=== PATIENT | female | born 1965 | race Caucasian/White ===

== ENCOUNTER 2018-11-17 07:34 | Observation (INO) | payer BC ==
[~2018-11-17] VITALS: Ht 165.1 cm; Wt 93.0 kg
[2018-11-17] MEDS ORDERED: PRILOSEC OTC20 MG PO (07:50)
--- NOTE | 2018-11-17 10:45 | NUR ---
11/17/18 Len5 Chasidy Culver 1031- PT ARRIVEST TO PACU ALERT AND ORIENTED. RESP EVEN AND UNLABORED. OXYGEN SAT HIGH 90'S ON RA. PT REPORTS NO PAIN OR NAUSEA. 1042- DR. POLLARD AT THE BEDSIDE TO TALK WITH THE PT.
--- NOTE | 2018-11-17 12:00 | NUR ---
1155, Pt to room 123. Report received from Adilia CUADRA. Pt denies pain. Left foot elevated, boot in place, ice in place, scd on the right. Pt unable to feel and move her feet at this time. Spinal level at her knees at this time.
--- NOTE | 2018-11-17 13:38 | EKG ---
[facility] [address] [facility] [place], [place] [address] Signed Normal sinus rhythm Possible Left atrial enlargement Incomplete right bundle branch block Borderline ECG No previous ECGs available Confirmed by PILY ALMODOVAR DO ([id number]) on 11/17/2018 1:38:42 PM Electronically Signed By: IPLY ALMODOVAR DO 11/17/18 1338 PATIENT NAME: FIONA BOND Electrocardiogram DATE OF : 65 PHYSICIAN: PILY ALMODOVAR DO REPORT #: [id number] REPORT IS CONFIDENTIAL AND NOT TO BE RELEASED WITHOUT AUTHORIZATION
--- NOTE | 2018-11-17 13:57 | NUR ---
Pt continues to denie any current pain. Circulation and cap refill less than 2 seconds on the left foot toes. Dressing intact, foot elevated with ice in place, boot remains on.
--- NOTE | 2018-11-17 15:05 | NUR ---
SPINAL/BLOCK STILL WORKING ON THE LEFT ANKLE THE PT IS ABLE TO MOVE AND FEEL WITH THE RIGHT NOT THE LEFT YET. PT DENIES ANY PAIN.
--- NOTE | 2018-11-17 15:14 | NUR ---
Pt's ice in her bag replaced at this time. Pt states she needs to void and was placed on the bedpan.
--- NOTE | 2018-11-17 16:59 | NUR ---
Pt continues to denie any pain and her left foot remains numb. Cap refill is less than 2 seconds. Left foot remains elevated with ice in place, boot and dressing cdi. SCD on and running on the right foot. Pt continues to denie any other problems and she is ordering her dinner at this time.
--- NOTE | 2018-11-17 17:39 | NUR ---
PT ADMITTED TODAY POST-OP FOR AN OPEN LEFT ANKLE FX. HER DRESSING AND POST-OP BOOT REMAIN INPLACE, SHE HAS A GOOD CAP REFILL WITH LESS THAN 2 SECONDS. SHE HAD A SPINAL AND A POST-OP BLOCK AND HER LEFT FOOT REAMINS NUMB AT THIS TIME AND SHE IS PAIN FREE. LEFT FOOT ELEVATED AND ICE IN PLACE.
--- NOTE | 2018-11-17 18:50 | NUR ---
Pt up to the commode with 2 person assist and toe touch on the left side. Pt tolerated well and is now back to bed. She was able to void a good amount. Pt ate dinner well and at 100%. Pt continues to denie any pain.
--- NOTE | 2018-11-17 19:26 | NUR ---
RECEIVED REPORT FROM VENECIA VOSS. pt ALERT AND AWAKE DENIES PAIN AT THIS TIME. AT BEDSIDE. CALL LIGHT WITHIN REACH. WHITEBOARD UPDATED. NO REQUESTS AT THIS TIME.
--- NOTE | 2018-11-17 20:07 | NUR ---
ASSESSMENT AND MEDICATIONS DUE. ASSESSMENT DONE. pt DENIES PAIN AT THIS TIME. BLOCK IN PLACE ON LLE. PULSE STRONG, GOOD CAP REFILL. BOOT IN PLACE. DRESSING CDI. MEDICATIONS GIVEN (SEE MAR). EDUCATED ON PAIN MANAGEMENT. WILL CALL WHEN READY TO USE BSC. NO REQUESTS AT THIS TIME. CALL LIGHT WITHIN REACH.
--- NOTE | 2018-11-17 22:06 | NUR ---
VITALS AND I&OS DONE AND CHARTED. BEDSIDE TABLE AND CALL LIGHT IN REACH. PT NEEDS NOTHING MORE AT THIS TIME.
--- NOTE | 2018-11-18 00:02 | NUR ---
ROUNDED ON pt. RESTING WITH EYES CLOSED, RESPIRATIONS REGULAR. AT BEDSIDE. CALL LIGHT WITHIN REACH.
--- NOTE | 2018-11-18 01:22 | NUR ---
ASSESSMENT AND MEDICATION DUE. ASSESSMENT DONE. DRESSING CDI, BOOT IN PLACE. ELEVATED. REFRESHED ICE. SCD ON RIGHT LEG. 2 PA TO BSC AND BACK TO BED. VSS, I&O RECORDED. MEDICATION GIVEN (SEE MAR). CALL LIGHT WITHIN REACH. AT BEDSIDE. NO REQUESTS AT THIS TIME.
--- NOTE | 2018-11-18 04:39 | NUR ---
TO NURSES STATION REQUESTING COFFEE. COFFEE PROVIDED BY CHERI MCMAHON. pt AWAKE AND ALERT. CALL LIGHT WITHIN REACH.
--- NOTE | 2018-11-18 04:50 | NUR ---
pt RESTED MOST OF SHIFT. DRESSING CDI. BOOT IN PLACE. LEG ELEVATED WITH ICE. BLOCK TO LLE. SCD ON RIGHT LEG. DENIED PAIN DURING SHIFT. 2PA TO BSC. TOE TOUGH WT BEARING STATUS ON LEFT LEG. SL, IV ABX. TOLERATING REGULAR DIET. AT BEDSIDE. USES CALL LIGHT APPROPRIATELY.
--- NOTE | 2018-11-18 06:41 | NUR ---
WITH THE HELP OF CHERI MCMAHON WE HELPED PT TO THE BSC AND BACK TO BED. BEDSIDE TABLE AND CALL LIGHT IN REACH. FRESH ICE WATER AND COFFEE GIVEN.
--- NOTE | 2018-11-18 07:14 | NUR ---
BEDSIDE REPORT RECEIVED FROM VENECIA HERNANDEZ. PT REPORTS SOME INCREASING PAIN TO LEFT ANKLE. CMS INTACT DISTAL TO LLE. PT ALSO REQUESTS WARM BLANKETS FOR HER SLEEPING AT BEDSIDE. PT DENIES FURTHER NEEDS/CONCERNS.
--- NOTE | 2018-11-18 07:23 | NUR ---
PATIENT SITTING UP IN BED. IN ROOM. PATIENT'S BREAKFAST ORDERED. CALL LIGHT WITHIN REACH. NO OTHER NEEDS AT THIS TIME
--- NOTE | 2018-11-18 07:44 | NUR ---
Pt resting supine in bed watching tv a/o x4. Pt reports pain is increasing to left ankle. PRN po opiod administered along with iv toradol -see EMAR. Warm blankets provided to pt's per pt request. Call light and h20 in reach. Pt reports usually taking prilosec in the mornings and feels she may have some indegestion after breakfast. Will Consult with MD this morning about potential RX for prilosec per pt request. No further needs/concerns voiced.
--- NOTE | 2018-11-18 09:30 | NUR ---
PT SITTING UP IN BED, STATES PAIN IS GONE AND THAT SHE WAS ABLE TO TOLERATE ALL OF HER BREAKFAST AND DENIES HAVING ANY INDEGESTION. ICE TO LEFT FOOT AND CALL LIGHT AND H20 IN REACH. NO NEEDS/CONCERNS VOICED.
--- NOTE | 2018-11-18 10:12 | NUR ---
PATIENT SITTING UP IN BED. AND FRIEND IN ROOM. VITAL SIGNS AND I&O DONE. PATIENT DID NOT VOID DURING THIS PERIOD, THIS NURSE QUALITY ENCOURAGE HER TO USE BATHROOM BUT SHE SAID "I'LL CALL WHEN I'M READY TO GO". RN NOTIFIED. CALL LIGHT WITHIN REACH. NO OTHER NEEDS AT THIS TIME
--- NOTE | 2018-11-18 11:42 | OR ---
[facility] [address], [place] [address] Signed DATE OF OPERATION: 11/17/2018 SURGEON: Geraldine Feng MD PREOPERATIVE DIAGNOSIS: Trimalleolar ankle fracture dislocation, open, grade 1. POSTOPERATIVE DIAGNOSIS: Trimalleolar ankle fracture dislocation, open, grade 1. PROCEDURES PERFORMED: 1. Irrigation and debridement of skin, subcutaneous tissue, and bone of left medial malleolus. 2. Open reduction and internal fixation, trimalleolar ankle fracture dislocation. CAB WORKER: None. ANESTHESIA: Spinal. BLOOD LOSS: Minimal. TOURNIQUET TIME: 45 minutes on tourniquet. IMPLANTS: Seven-hole one-third tubular plate with 10 screws and 1.6 K-wire. BRIEF HISTORY: Fiona is a 53-year-old female, who was walking to her bus this morning at work. She slipped on the ice and fell fracturing her ankle. Examination at the ER revealed a 1 cm laceration anteromedially. There is also fracture dislocation. Risks and benefits of operative treatment immediately were discussed with her given the open nature of the fracture. She elected to proceed. DESCRIPTION OF PROCEDURE: Once consent was obtained, she was taken to the operating room. After adequate anesthesia, she was placed on operating table. All downside pressure points well Electronically Signed By: GERALDINE FENG MD 11/18/18 1142 PATIENT NAME: FIONA BOND OPERATIVE REPORT DATE OF : 65 REPORT #: [id number] PHYSICIAN: GERALDINE FENG MD PCP: VEENA RUIZ MD REPORT IS CONFIDENTIAL AND NOT TO BE RELEASED WITHOUT AUTHORIZATION [facility] [address], [place] [address] Signed padded. Hip bump was placed and well-padded proximal thigh tourniquet was placed. The leg was then prepped and draped in a standard sterile fashion. Exsanguinated and tourniquet inflated to 250 mmHg. The lateral side was approached 1st to reduce the ankle. A longitudinal 2.5 inch incision was carried through skin and subcutaneous tissue. All the blood and blood clot were removed. The periosteum was elevated anteriorly and posteriorly. The fracture was reduced and held with a pointed clamp. The 1st screw was placed in the anterior to posterior interfragmentary lag technique. The clamp was then removed. The seven hole plate was then fashioned to the posterolateral side of the fibula. It was held in position using a single screw and the position was checked and found to be adequate. Give 3.5 cortical screws were placed proximally, two 3.5 locking screws distally. The wound was copiously irrigated with the Aricept and the wound was closed with 2-0 Monocryl and dax. Medial side was then approached. A curvilinear incision was made centered over the 1 cm laceration. This laceration and surrounding skin were excised. This was carried through skin and subcutaneous tissue, with care taken to protect the cephalic vein. The fracture was distracted and cleaned of all debris and held in position. It was a bit fragmented and I did not feel that a plate or two screws would be able to be fit in the pieces. We elected to go with one screw and one wire. The fragment was held in position using a 1.6 mm K-wire. Once the position that was ascertained, we then placed a 3.5 screw anterior to this in the main body of the medial malleolus. The wire was then cut and bent and driven into the screw head. The wound was then closed similar to the other side. Once this was accomplished, rotational views were obtained, which did show the posterior malleolus to be fractured about 25% of the joint space, but it was well reduced. A single 3.5 screw was then placed percutaneously and the anterolateral aspect of the tibia posteriorly engaging the body that had anchoring it. This again was closed with dax. All wounds were cleansed. We did wash out the open portion of the bony fracture with 500 mL of the Aricept. This was done prior to closing the wound. The wounds were dressed with Mepilex, ABD, and Reg wrap. She was placed in a fracture boot, taken to the recovery room in satisfactory condition. All sponge, needle, and instrument counts were correct. Geraldine Feng MD BA/MODL /[id number] Electronically Signed By: GERALDINE FENG MD 11/18/18 1142 PATIENT NAME: FIONA BOND OPERATIVE REPORT DATE OF : 65 REPORT #: [id number] PHYSICIAN: GERALDINE FENG MD PCP: VEENA RUIZ MD REPORT IS CONFIDENTIAL AND NOT TO BE RELEASED WITHOUT AUTHORIZATION [address] [address] Signed Copies: ~ Electronically Signed By: GERALDINE FENG MD 11/18/18 1142 PATIENT NAME: FIONA BOND OPERATIVE REPORT DATE OF : 65 REPORT #: [id number] PHYSICIAN: GERALDINE FENG MD PCP: VEENA RUIZ MD REPORT IS CONFIDENTIAL AND NOT TO BE RELEASED WITHOUT AUTHORIZATION
[2018-11-18] MEDS ORDERED: SENNA LAX8.6 MG PO (11:55)
[2018-11-18] MEDS ORDERED: GABAPENTIN300 MG PO (11:55)
[2018-11-18] MEDS ORDERED: CELEBREX200 MG PO (11:55)
[2018-11-18] MEDS ORDERED: HYDROCODON-ACE1 EA11 PO (11:55)
--- NOTE | 2018-11-18 12:37 | NUR ---
PT RESTING SUPINE IN BED IN SEMIFOWLERS POSITION WATCHING TV AND VISITING WITH FAMILY. PT REPORTS INCREASING PAIN TO LEFT ANKLE. PT REQUESTED AND RECEIVED PRN PO OPIOD -SEEEMAR. CALL LIGHT AND FRESH ICE WATER IN REACH. NO FURTHER NEEDS/CONCERNS VOICED.
--- NOTE | 2018-11-18 13:24 | NUR ---
PATIENT SITTING UP IN BED. PATIENT GOES TO USE BATHROOM. ONE PERSON ASSISTING. PATIENT BACKS TO BED. VITAL SIGNS AND I&O DONE. PATIENT HAS NOT TAKEN HER LUNCH YET. CALL LIGHT WITHIN REACH. NO OTHER NEEDS AT THIS TIME
--- NOTE | 2018-11-18 14:39 | NUR ---
PATIENT SITTING UP IN BED. IN ROOM. FINAL VITAL SIGNS WERE OBTAINED PRIOR TO DISCHARGE FROM THE UNIT
== END 2018-11-18 14:45 | disposition home or self-care (01) ==
LOC: ED 07:34 → MS 07:35 → ED 09:07 → MS 09:07
PROVIDERS: ADMIT Specialist
PROC: 0QSH04Z Reposition Left Tibia with Internal Fixation Device, Open Approach (ICD-10-PCS; 2018-11-17)
PROC: 0QSH04Z Reposition Left Tibia with Internal Fixation Device, Open Approach (ICD-10-PCS; 2018-11-17)
PROC: 3E0T3BZ Introduction of Anesthetic Agent into Peripheral Nerves and Plexi, Percutaneous Approach (ICD-10-PCS; 2018-11-17)
PROC: 3E0T33Z Introduction of Anti-inflammatory into Peripheral Nerves and Plexi, Percutaneous Approach (ICD-10-PCS; 2018-11-17)
PROC: 0QSK04Z Reposition Left Fibula with Internal Fixation Device, Open Approach (ICD-10-PCS; principal; 2018-11-17 09:00)
DX: S82.842B Displaced bimalleolar fracture of left lower leg, initial encounter for open fracture type I or II (principal); G89.18 Other acute postprocedural pain; K21.9 Gastro-esophageal reflux disease without esophagitis; W00.0XXA Fall on same level due to ice and snow, initial encounter; Z79.899 Other long term (current) drug therapy; Z88.5 Allergy status to narcotic agent; Z87.891 Personal history of nicotine dependence
CPT/HCPCS: 01480; 36415; 64445; 73600; 73610; 76942; 80053; 85025; 93005; 93010; 96374; 96376; 99285-25; C1713; G0378; J0690; J1100; J1885; J2250; J2405; J2795; J3010

== ENCOUNTER 2024-03-08 05:40 | Emergency (ER) | payer BC ==
[~2024-03-08] VITALS: Ht 165.1 cm; Wt 106.0 kg
[~2024-03-08 05:40] MED LIST: CELEBREX200 MG PO; GABAPENTIN300 MG PO; HYDROCODON-ACE1 EA11 PO; PRILOSEC OTC20 MG PO; SENNA LAX8.6 MG PO
[2024-03-08 05:58] LABS: BILIRUBIN, URINE NEGATIVE (negative); BLOOD/HGB, URINE NEGATIVE (Negative); KETONE, URINE NEGATIVE (Negative); LEUK ESTERASE, URINE NEGATIVE (negative); NITRITE, URINE NEGATIVE (negative)
[2024-03-08] MEDS ORDERED: KETOROLAC TROMETHAMINE 15 MG/ML VIAL IV ONE (06:15)
[2024-03-08 06:25] LABS: BASOPHILS 0.6 % (0-2); EOSINOPHILS 2.9 % (0-6); HEMOGLOBIN 12.3 g/dL (12.0-18.0); LYMPHOCYTES 29.9 % (24-44); MCH 30.5 (27-36); MCHC 33.2 g/dl (30-36); MONOCYTES 7.2 % (0-12); NEUTROPHILS 59.4 % (39-80); PLATELET COUNT 222 K/uL (140-440); RBC 4.02 M/ul (4.3-5.7); RDW 13.9 (10.5-15.0)
[2024-03-08] MEDS ORDERED: LISINOPRIL10 MG PO (06:37)
[2024-03-08] MEDS ORDERED: CITALOPRAM HBR20 MG PO (06:37)
[2024-03-08 06:40] LABS: ALBUMIN 3.3 g/dL (3.4-5.0); ALBUMIN/GLOBULIN RATIO 0.92 (1.1-2.4); ANION GAP 13.1 (7-21); BILIRUBIN, TOTAL 0.3 ng/dL (0.2-1.0); BUN/CREATININE RATIO 22.66 (6.0-28.6); CALCIUM 8.6 mg/dL (8.5-10.1); CREATININE, SERUM 0.75 mg/dL (0.55-1.02); POTASSIUM 4.1 mmol/L (3.5-5.1); PROTEIN, TOTAL 6.9 g/dL (6.4-8.2)
[2024-03-08] MEDS ORDERED: LIDODERM1 EACH TOP (07:26)
[2024-03-08 07:49] VITALS: BP 113/66
== END 2024-03-08 07:50 | disposition home or self-care (01) ==
LOC: ED 05:40
PROVIDERS: Internal Medicine
DX: S39.012A Strain of muscle, fascia and tendon of lower back, initial encounter (principal); X58.XXXA Exposure to other specified factors, initial encounter; Z79.899 Other long term (current) drug therapy; Z88.5 Allergy status to narcotic agent; Z87.891 Personal history of nicotine dependence
CPT/HCPCS: 36415; 74177; 80053; 81003; 85025; J1885; Q9967